=== PATIENT | female | born 1940 | race Caucasian/White ===

== ENCOUNTER → 2021-07-23 | Outpatient (CLI) | payer MEDICARE, BC ==
--- NOTE | 2021-07-24 17:32 | CT ---
EXAMINATION TYPE: CT chest wo con DATE OF EXAM: 07/23/2021 COMPARISON: None HISTORY: Lung nodule CT DLP: 283.3 mGycm. Automated Exposure Control for Dose Reduction was Utilized. TECHNIQUE: CT scan of the thorax is performed without IV contrast. FINDINGS: Lack of contrast could compromise sensitivity. LUNGS: The lungs are remarkable for bandlike area of increased attenuation, suggestion of a branching focus noted on axial image 32, there is some some focal thickening, irregular density likely scar so mewhat bandlike in the right upper lobe, coronal image 68, axial image 31. Left lower lobe axial emelia ge 34, coronal image 65 shows a smoothly marginated nodule measuring approximately 7 mm in size There is no pleural effusion or pneumothorax seen. The tracheobronchial tree is patent. MEDIASTINUM: Lack of IV contrast is noted to limit evaluation for mediastinal and especially hilar ad enopathy. There are no definitive greater than 1 cm hilar or mediastinal lymph nodes. No cardiomega ly or pericardial effusion is seen. There are coronary calcifications. Prominence of pulmonary artery could be indicative of pulmonary artery hypertension OTHER: Scoliotic curvature is present within the spine, there are degenerative disc changes present IMPRESSION: Findings suggest scarring in the right lung. Indeterminate left lower lobe pulmonary nodu le. Correlate for possible pulmonary artery hypertension
== END | disposition home or self-care (01) ==
LOC: RADCTMAIN 13:28
PROVIDERS: ATTEND Internal Medicine Hematology & Oncology
DX: R91.1 Solitary pulmonary nodule (principal)
CPT/HCPCS: 71250